=== PATIENT | female | born 1985 | race Caucasian/White ===

== ENCOUNTER 2023-04-17 15:57 | Emergency (ER) | payer OTHER, SELFPAY ==
[2023-04-17] VITALS (8 sets, daily range): BP systolic 112–177; BP diastolic 49–122; PULSE 92–109; RESP 18–28; TEMP 36.6; O2SAT 96–98; BMI 23.3
--- NOTE | 2023-04-17 16:09 | DI.RAD.S_ITS ---
PROCEDURE: XR CHEST 1V INDICATIONS: Possible stroke TECHNIQUE: One view of the chest was acquired. COMPARISON: None. FINDINGS: Surgical changes and devices: None. Lungs and pleura: Lungs are clear. No pleural effusions or pneumothorax. Mediastinum: Mediastinal contours appear normal. Heart size is normal. Bones and chest wall: No suspicious bony lesions. Overlying soft tissues appear unremarkable. IMPRESSION: No acute cardiopulmonary abnormality is seen. Dictated by: Laura Musa M.D. on 04/17/2023 at 16:26 Approved by: Laura Musa M.D. on 04/17/2023 at 16:26
--- NOTE | 2023-04-17 16:17 | DI.CT.S_ITS ---
PROCEDURE: CT HEAD/BRAIN WO CON INDICATIONS: neuro symptoms TECHNIQUE: Noncontrast 4.5 mm thick angled axial sections acquired from the foramen magnum to the vertex, with coronal and sagittal reformats. For radiation dose reduction, the following was used: automated exposure control, adjustment of mA and/or kV according to patient size. COMPARISON: None. FINDINGS: Image quality: Diagnostic. CSF spaces: Basal cisterns are patent. No extra-axial fluid collections. Ventricles are normal in size and shape. Brain: No midline shift. No intracranial masses or hemorrhage. Lara-white matter interface is normal. Skull and face: Calvarium and visualized facial bones are intact, without suspicious lesions. Sinuses: Visualized sinuses and mastoids are clear. IMPRESSION: No acute intracranial pathology. Dictated by: Laura Musa M.D. on 04/17/2023 at 16:27 Approved by: Laura Musa M.D. on 04/17/2023 at 16:28
[2023-04-17 16:43] LABS: Add Manual Diff / Slide Review NO; Basophils Absolute Auto 100 /uL (0-100); Basophils Percent Auto 1.2 % (0-2); Eosinophils Absolute Auto 300 /uL (0-450); Hemoglobin 13.6 g/dL (12.0-16.0); Lymphocytes Absolute Auto 2800 /uL (1100-4500); Lymphocytes Percent Auto 30.8 % (25-40); Mean Corpuscular HGB Conc 34.9 % (30-36); Mean Corpuscular Hemoglobin 30.5 PG (26-34); Mean Corpuscular Volume 87.3 fL (80-100); Monocytes Absolute Auto 700 /uL (0-900); Monocytes Percent Auto 7.8 % (3-14); Neutrophils Absolute Auto 5200 /uL (1500-7000); Neutrophils Percent Auto 57.2 % (50-75); Platelet Count 388 X10^3/uL (150-400); Red Blood Cell Count 4.47 X10^6/uL (4.0-5.2)
[2023-04-17 16:51] LABS: Prothrombin Time 11.7 SECONDS (9.4-12.5)
[2023-04-17 16:57] LABS: Alanine Aminotransferase 16 IU/L (<35); Albumin 4.7 g/dL (3.5-5.0); Albumin Globulin Ratio 1.3 (1.0-2.8); Alkaline Phosphatase 53 U/L (38-126); Aspartate Aminotransferase 22 IU/L (14-36); BUN Creatinine Ratio 18.9 (6-22); Bilirubin Total 0.6 mg/dL (0.2-1.3); Blood Urea Nitrogen 14 mg/dL (7-17); Calcium 9.8 mg/dL (8.4-10.2); Carbon Dioxide 26 mmol/L (22-32); Chloride 102 mmol/L (98-107); Creatine Kinase 39 U/L (30-135); Estimated Glomerular Filt Rate > 60 mL/min (>60); Globulin 3.5 g/dL (1.7-4.1); Glucose 92 mg/dL (70-100); HEMOLYSIS < 15 (0-50); Potassium 3.7 mmol/L (3.4-5.1); Sodium 137 mmol/L (137-145); Total Protein 8.2 g/dL (6.3-8.2)
[2023-04-17 17:08] LABS: Troponin I < 0.012 ng/mL (0.01-0.034)
[2023-04-17 17:13] LABS: Ur Creatinine Normal (Normal); Ur Specific Gravity Normal (Normal); Urine pH Normal (Normal)
[2023-04-17 17:14] LABS: UR Morphine/Opiate cutoff 300 Negative (Negative); Urine Amphetamines Negative (Negative); Urine Barbiturates Negative (Negative); Urine Benzodiazepines Negative (Negative); Urine Cocaine Negative (Negative); Urine MDMA Negative (Negative); Urine Methadone Negative (Negative); Urine Methamphetamines Negative (Negative); Urine Oxycodone Negative (Negative); Urine Phencyclidine Negative (Negative); Urine Tetrahydrocannabinol Negative (Negative); Urine Tricyclic Antidepressant Negative (Negative)
--- NOTE | 2023-04-17 18:15 | ED.NEUROSD ---
HPI - Neuro Symptoms/Deficit General Chief Complaint: Neuro Symptoms/Deficit Stated Complaint: involuntary jerking[place] Time Seen by Provider: 04/17/23 17:53 Source: patient Mode of arrival: Ambulatory History of Present Illness HPI Narrative: 37-year-old female with no reported past medical history presents by private vehicle from home for 7-10 days of left-sided jerking, especially in her left shoulder and left upper extremity. Patient states that when symptoms began she felt a numb sensation on the left side she states that this is happened in the past, but due to the time it takes for her to get a primary care appointment she never followed up, and the jerking activity usually resolved after several days. This episode has lasted much longer than usual in his causing her to not be able to sleep at night. She was able to make a primary care doctor's appointment today, who referred her to the ER for evaluation. On Anticoagulants: No Related Data Previous Rx's Medication Instructions Recorded baclofen 5 mg tablet 5 mg PO BID PRN muscle spasm #14 04/17/23 tabs Allergies Allergy/AdvReac Type Severity Reaction Status Date / Time No Known Drug Allergies Allergy Verified 04/17/23 19:33 Review of Systems Review of Systems Narrative: Negative except as noted above Hematologic/Lymphatic On Anticoagulants: No Patient History Social History Smoking Status: Never smoker Smoking Status: Never smoker alcohol intake frequency: other Substance Use Type: does not use Exam Initial Vital Signs Initial Vital Signs: Vital Signs Temperature 98 F 04/17/23 16:05 Pulse Rate 109 H 04/17/23 16:05 Respiratory Rate 18 04/17/23 16:05 Blood Pressure 177/122 H 04/17/23 16:05 Pulse Oximetry 97 04/17/23 16:05 Oxygen Delivery Method Room Air 04/17/23 16:05 Const: Awake, alert, tearful Cardiac: Regular rate, regular rhythm RESP: unlabored, clear bilaterally, no wheezing GI: Atraumatic, soft MSK: Atraumatic, full range of motion, pulses equal Skin: Warm, Dry, intact, no rashes Neuro: AO x3, CN II-XII grossly intact, abnormal drinking behavior in patient's left shoulder and left upper extremity Psych: Tearful, mood normal, not suicidal, not homicidal Course Orders Ordered: ED Orders 04/17/23 16:09 XR chest 1V Stat EKG-12 Lead Stat 04/17/23 16:17 CT head/brain wo con Stat 04/17/23 16:30 Complete Blood Count AUTO DIFF Stat Comprehensive Metabolic Panel Stat Magnesium Stat Prothrombin Time INR Stat Troponin & CK Cardiac Panel Stat 04/17/23 16:40 Urine Drug Screen, Rapid Stat Discontinued Medications Droperidol (Droperidol 5 Mg/2 Ml Vial) 5 mg IV NOW ONE Stop: 04/17/23 18:47 Last Admin: 04/17/23 18:53 Dose: 5 mg Documented By: CHENCHO Sodium Chloride (Normal Saline 0.9%) 1,000 mls @ 1,000 mls/hr IV BOLUS ONE Stop: 04/17/23 19:45 Last Infusion: 04/17/23 19:51 Dose: Infused Documented By: Admin: 04/17/23 18:53 Dose: 1,000 mls/hr Documented By: CHENCHO Ondansetron HCl (Ondansetron 4 Mg/2 Ml Inj) 4 mg IV NOW PRN PRN Reason: Nausea And Vomiting Ondansetron HCl (Ondansetron 4 Mg Odt) 4 mg SL NOW PRN PRN Reason: Nausea And Vomiting Vital Signs Vital signs: Vital Signs - 8 hr 04/17/23 16:50 04/17/23 16:50 04/17/23 17:00 Pulse Rate 99 H 96 H Respiratory Rate Blood Pressure 126/88 Pulse Oximetry 96 98 04/17/23 17:00 04/17/23 17:30 04/17/23 18:00 Pulse Rate 93 H 92 H Respiratory Rate 28 H Blood Pressure 117/60 Pulse Oximetry 97 97 04/17/23 18:00 04/17/23 18:30 04/17/23 18:30 Pulse Rate 92 H Respiratory Rate Blood Pressure 119/74 131/77 Pulse Oximetry 97 04/17/23 19:00 04/17/23 19:00 Pulse Rate 105 H Respiratory Rate 18 Blood Pressure 123/67 Pulse Oximetry 97 MDM - Neuro Symptoms/Deficit Lab Data 04/17/23 16:30 04/17/23 16:30 Labs: Lab Results 04/17/23 04/17/23 Range/Units 16:30 16:40 WBC 9.0 (4.5-11.0) X10^3/uL RBC 4.47 (4.0-5.2) X10^6/uL Hgb 13.6 (12.0-16.0) g/dL Hct 39.0 (36-46) % MCV 87.3 (80-100) fL MCH 30.5 (26-34) PG MCHC 34.9 (30-36) % RDW 13.0 (11.6-14.8) % Plt Count 388 (150-400) X10^3/uL Neut % (Auto) 57.2 (50-75) % Lymph % (Auto) 30.8 (25-40) % [place] % (Auto) 7.8 (3-14) % Eos % (Auto) 3.0 (2-4) % Baso % (Auto) 1.2 (0-2) % Neut # (Auto) 5200 (1704-5915) /uL Lymph # (Auto) 2800 (3454-6168) /uL [place] # (Auto) 700 (0-900) /uL Eos # (Auto) 300 (0-450) /uL Baso # (Auto) 100 (0-100) /uL PT 11.7 (9.4-12.5) SECONDS INR 1.0 (0.9-1.3) Sodium 137 (137-145) mmol/L Potassium 3.7 (3.4-5.1) mmol/L Chloride 102 (98-107) mmol/L Carbon Dioxide 26 (22-32) mmol/L BUN 14 (7-17) mg/dL Creatinine 0.74 (0.52-1.04) mg/dL Estimated GFR > 60 (>60) mL/min BUN/Creatinine Ratio 18.9 (6-22) Glucose 92 (70-100) mg/dL Calcium 9.8 (8.4-10.2) mg/dL Magnesium 2.0 (1.6-2.3) mg/dL Total Bilirubin 0.6 (0.2-1.3) mg/dL AST 22 (14-36) IU/L ALT 16 (<35) IU/L Alkaline Phosphatase 53 (38-126) U/L Total Creatine Kinase 39 (30-135) U/L Troponin I < 0.012 (0.01-0.034) ng/mL Total Protein 8.2 (6.3-8.2) g/dL Albumin 4.7 (3.5-5.0) g/dL Globulin 3.5 (1.7-4.1) g/dL Albumin/Globulin Ratio 1.3 (1.0-2.8) U Opiates 300ng/mL cut Negative (Negative) Ur Oxycodone Screen Negative (Negative) Urine Methadone Screen Negative (Negative) Ur Barbiturates Screen Negative (Negative) U Tricyclic Antidepress Negative (Negative) Ur Phencyclidine Scrn Negative (Negative) Ur Amphetamines Screen Negative (Negative) U Methamphetamines Scrn Negative (Negative) Ur MDMA Scrn (Ecstasy) Negative (Negative) U Benzodiazepines Scrn Negative (Negative) Urine Cocaine Screen Negative (Negative) U Marijuana (THC) Screen Negative (Negative) Urine pH Normal (Normal) Urine Specific [place] Normal (Normal) Ur Creatinine Normal (Normal) Point of Care Testing Test Results Negative Urine Dip Bedside Urine Glucose Negative Bedside Urine Bilirubin - Negative Bedside Urine Ketone - Negative Urine Specific [place] 1.015 Bedside Urine Occult Blood - Negative Bedside Urine pH 8.0 Bedside Urine Protein - Negative Bedside Urine Urobilinogen - Negative Bedside Urine Nitrite - Negative Bedside Urine Leukocytes - Negative Esterase MDM Narrative Medical decision making narrative: Anxious and tearful but nontoxic patient presenting with 7-10 days of this abnormal jerking activity in her left arm. Has been has a video of patient's sleeping with these jerking activities. Seems to be constant and does not alleviate with distraction. Laboratory work is reviewed, unremarkable. CT brain negative for acute findings, chest x-ray is unremarkable. Patient received droperidol and IV fluids with improvement in the jerking activity, however patient stated she did not like how the droperidol made her feel, stating it made her feel congested. No identifiable cause in the emergency department for patient's abnormal activity. Patient could have myoclonus, possible focal seizure activity, other neurologic condition that is causing her symptoms. She and her were advised of lab and imaging results at bedside. I strongly recommended that patient follow up with a neurologist. Patient stated that she would call her primary care doctor tomorrow for a referral to a neurologist. ED return precautions discussed at bedside. Patient expressed understanding of the plan and is in agreement at this time. All questions answered at the time of discharge. Discharge Plan Departure Patient Disposition: Home Clinical Impression: Abnormal movement Instructions: Myoclonus Prescriptions: New baclofen 5 mg tablet 5 mg PO BID PRN (Reason: muscle spasm) Qty: 14 0RF Referrals: ProviderMarlene [Primary Care Provider] - Stand Alone Forms: Patient Portal/API
[2023-04-17] MEDS: SODIUM CHLORIDE 0.9% 1,000 ML 1000 ML IV (18:53)
[2023-04-17] MEDS: DROPERIDOL 5 MG/2 ML VIAL IV (18:53)
--- NOTE | 2023-04-17 19:11 | PC.NURSE ---
Pt continues to have involuntary movement of left arm and face, pt also complains of some brain fog over the last week. Hisotory of same in the past, but never knew what cause was. Pt is tearful upon exam and appears upset over symptoms. Denies any new stressors or medications.
--- NOTE | 2023-04-17 19:46 | PC.NURSE ---
MD Zuniga at bedside.
== END 2023-04-17 19:58 | disposition home or self-care (01) ==
PROVIDERS: Emergency Medicine; Emergency Provider Emergency Medicine
DX: R25.9 Unspecified abnormal involuntary movements (principal)
CPT/HCPCS: 36415; 70450; 71045; 80053; 80305; 81003; 81025; 82550; 83735; 84484; 85025; 85610; 93005; 96361; 96374; 99284; 99285; J1790